=== PATIENT | female | born 2000 | race Asian ===

== ENCOUNTER 2020-05-01 10:09 | Emergency (ER) | payer BC, OTHER ==
[~2020-05-01] VITALS: Ht 157.5 cm; Wt 66.2 kg
[2020-05-01 10:16] VITALS: BP_SYST 149
--- NOTE | 2020-05-01 10:50 | NUR ---
C/O HEMATURIA, LOWER ABDOMINAL , PAINFUL URINATION X TODAY.PT AOR 4 AFIBRILE , AMBULATORY WITH STEADY GAIT , PINK PALPEBRAL CONJUNCTIVA , ANICTERIC SCLERA , SCE , FLAT SOFT ABDOMEN. MED HX" DENIES
--- NOTE | 2020-05-01 11:15 | NUR ---
DR JUÁREZ AT BEDSIDE EVALUATING PT.
--- NOTE | 2020-05-01 11:23 | NUR ---
Patient discharged with v/s stable. Written and verbal after care instructions given and explained regarding UTI. Patient alert, oriented and verbalized understanding of instructions. Ambulatory with steady gait. All questions addressed prior to discharge. ID band removed. Patient advised to follow up with PMD. Rx of keflex given. Patient educated on indication of medication including possible reaction and side effects. Opportunity to ask questions provided and answered.
[2020-05-01 11:24] VITALS: BP 149/81
== END 2020-05-01 11:23 | disposition home or self-care (01) ==
LOC: MED 10:09
DX: N39.0 Urinary tract infection, site not specified (principal); R31.9 Hematuria, unspecified
CPT/HCPCS: 81002; 81025; 99283